=== PATIENT | female | born 1930 | race Caucasian/White ===

== ENCOUNTER 2016-03-13 08:20 | Inpatient (IN) | payer MEDICARE, OTHER, MEDICAID ==
[2016-03-13] VITALS (16 sets, daily range): BP systolic 133–234; BP diastolic 53–129; PULSE 66–117; RESP 9–20; O2SAT 100
[~2016-03-13 08:20] MED LIST: ACET325T51 PO; ACET325T51 PR; ASCO-294 PO; CLON0.1T PO; DILT120C83 PO; FERR-83 PO; FLUO60TA PO; INSLIS SUBQ; INSU100C11 SUBQ; INSU100V7 SUBQ; IPRA3AMP IH; LEVA1.253 IH; LEVO75TA4 PO; LISI-610 PO; MORP20SY PO; MULT1CAP33 PO; NITR0.4T SL; ONDA4TAB6 PO; POLY17PO6 PO; PRE10 PO; TRAM50TA2 PO
[2016-03-13 08:28] LABS: BASOPHILS % (AUTO) 0.4 % (0-3); EOSINOPHILS % (AUTO) 0.7 % (0-5); MONOCYTES % (AUTO) 8.3 % (4-12); Mean Corpuscular Hemoglobin 32.2 pg (27.0-35.0); Mean Corpuscular Volume 95.9 fL (81-100); NEUTROPHILS % (AUTO) 76.6 % (40-74); Platelet Count 224 bil/L (150-400)
--- NOTE | 2016-03-13 08:37 | DRSVH ---
PROCEDURE: CT BRAIN (TPA) ([id number]) INDICATIONS: Stroke TECHNIQUE: Noncontrast 4.5 mm thick angled axial sections acquired from the foramen magnum to the vertex, with c oronal reformats. COMPARISON: [facility], CT, BRAIN W/O CONTRAST, 06/12/2013, 14:41. FINDINGS: Image quality: Excellent. CSF spaces: Basal cisterns are patent. No extra-axial fluid collections. The ventricles are symmet noreen in size and shape. Brain: No intracranial bleeds or masses. There is a new chronic versus subacute infarct within the left inferior cerebellum measuring 30 mm. There is cerebral volume loss for age, with resultant ventr icular and sulcal prominence. There are periventricular and deep white matter chronic small vessel i schemic changes. There is intracranial internal carotid artery atherosclerosis. Skull and face: Calvarium and visualized facial bones appear intact, without suspicious lesions. Sinuses: Visualized sinuses and mastoids are clear. IMPRESSION: 1. No acute intracranial abnormality. 2. Volume loss and small vessel skin disease. 3. 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 4. Findings relayed to Dr. Farrell via [facility] staff [facility], on 03.13.16 at 0834 hours. This study fulfills neurological imaging criteria for inclusion or exclusion of acute stroke therapie s based on available published neurological guidelines. Dictated by: Juan Metcalf M.D. on 03/13/2016 at 8:35 Approved by: Juan Metcalf M.D. on 03/13/2016 at 8:35
--- NOTE | 2016-03-13 08:46 | ED.REPORT ---
HPI-Stroke / CVA Mar 13, 2016 ED Provider: Jesus Alberto Farrell MD Patient is an 85 year old female with a history of atrial fibrillation who presents to the ED via EMS from [facility] s/p a decreased LOC. Her last known normal was at 0730. Patient is non-verbal and unresponsive upon arrival. Her POLST indicated she was DNAR but when her power of energy attorney was contacted, she requested to revoke her DNAR status. She is NOT anticoagulated. Power of energy attorney: Callie Lugo Nursing Notes Stated Complaint: DECREASE LOC Nursing Notes Reviewed: Yes ([employer], [employer] not reconciled) Allergies: Coded Allergies: lovastatin (Verified Allergy, Unknown, 12/28/14) Penicillins (Verified Adverse Reaction, Mild, swelling at injection site, 12/28/14) 06/30/14 GIVEN ROCEPHIN FINE Scheduled Ascorbate Calcium (Vitamin C) 500 Mg Tablet 500 MG PO DAILY (Reported) Clonidine (Clonidine) 0.1 Mg Tablet 0.1 MG PO BID Diltiazem ER (Cardizem CD) 120 Mg Cap.er.24h 360 MG PO DAILY Ferrous Sulfate (Ferrous Sulfate) 325 Mg Tablet 325 MG PO DAILY (Reported) Fluoxetine (Fluoxetine) 60 Mg Tablet 60 MG PO DAILY (Reported) Insulin Glargine (Lantus U100 Insulin Vial) 100 Unit/Ml Vial 7 UNIT SUBQ MORNING (Reported) Insulin Human Lispro (HumaLOG U100 Insulin Vial) 100 Unit/Ml Unit 0-10 UNIT SUBQ TIDAC Check blood sugars before meals and at bedtime. Use correction factor only before meals. Blood Sugar Lispro Correction: <151, 0 units; 151-175, 1 unit; 176-200, 2 units; 201-225, 3 units; 226-250, 4 units; 251-275, 5 units; 276-300 , 6 units; 301-325, 7 units; 326-350, 8 units; 351-375, 9 units; 376-400, 10 units; >400, 12 units. Insulin Lispro (HumaLOG U100 Insulin Cartridge Refill) 100 Unit/1 Ml Cartridge 3 UNIT SUBQ MORNING (Reported) Blood Sugar Lispro Correction <151 0 units 151-175 1 unit 176-200 2 units 201-225 3 units 226-250 4 units 251-275 5 units 276-300 6 units 301-325 7 units 326-350 8 units 351-375 9 units 376-400 10 units >400 12 units Check blood sugars before meals and at bedtime. Use correction factor only before meals. Ipratropium/Albuterol Sulfate (Iprat-Albut 0.5-3(2.5) mg/3 mL Inhalant Soln) 3 Ml Ampul.neb 3 ML IH BID (Reported) Levothyroxine (Levothyroxine) 75 Mcg Tablet 75 MCG PO DAILY (Reported) Lisinopril (Zestril) 10 Mg Tablet 20 MG PO BID Multivitamin (Multivitamins) 1 Each Capsule 1 EACH PO DAILY (Reported) Polyethylene Glycol 3350 (Miralax) 17 Gm Powd.pack 17 GM PO DAILY Prednisone (PredniSONE) 10 Mg Tablet 10 MG PO DAILY (Reported) Scheduled PRN Acetaminophen (Acetaminophen) 325 Mg Tablet 650 MG PO Q4H PRN PRN FEVER/PAIN ( Reported) Acetaminophen (Acetaminophen) 325 Mg Tablet 650 MG MS Q4H PRN PRN FEVER/PAIN ( Reported) Levalbuterol HCl (Xopenex) 1.25 Mg/3 Ml Vial.neb 1.25 MG IH QIDRT PRN PRN For Shortness of Breath Morphine Sulfate (Morphine Sulfate) 20 Mg/1 Ml Syringe 2 MG PO PRN air hunger ( Reported) Nitroglycerin SL (Nitrostat) 0.4 Mg Tab.subl 0.4 MG SL Q5MIN PRN PRN For Chest Pain (Reported) Ondansetron (Zofran) 4 Mg Tablet 4 MG PO Q4H PRN PRN For Nausea Tramadol (Tramadol) 50 Mg Tablet 50 MG PO TID PRN PRN For Pain (Reported) General Time Seen by Provider: 08:23 [facility]red From: jail Chief Complaint Mental status change Right-sided Hx Obtained From: Other family..., EMS Arrived By: Ambulance Time last known well 0730 on 03/13/16 Sudden in Onset?: Yes Progression Since Onset: Constant Past Medical History Past Medical History Notes: DNAR status revoked by POA. Patient is FULL CODE Past Medical History Dementia Chronic obstructive pulmonary disease. Paroxysmal atrial fibrillation. Hypertension. Hyperlipidemia. Hypothyroidism. Diabetes mellitus type 2. History of ulcerative colitis. Coronary artery disease, status post LAD stent. Gout. Spinal stenosis and multilevel lumbar spine degenerative changes. Osteoporosis. Osteoarthritis of left knee, requiring injections. non-anticoagulated NSTEMI Reports: Depression Past Surgical History Appendectomy. Partial colon resection. Cholecystectomy. Left carotid endarterectomy. Smoking History Former Smoker Social History FULL CODE FULL TREATMENT Alcohol Use: Denies alcohol use Drug Use: Denies drug use Other Social History: Good social support, , Lives in intermediate Ambulatory Status Independent Review of Systems Unable to Obtain ROS Patient condition Physical Exam Initial Vital Signs Vital Signs (First) Date Time Temp Pulse Resp B/P Pulse Ox O2 Delivery O2 Flow Rate FiO2 03/13/16 08:41 36.9 117 9 169/53 100 Non-Rebreather see flow Initial VS: Reviewed Abdomen / GI: Soft Skin: Warm, Dry Alertness: Positive: Unresponsive No visible sign of trauma. Head / Eyes: Normocephalic, PERRL Neck: Atraumatic Respiratory / Chest: Breath sounds = bilat Lungs clear but decresed respiration and required intubation. Heart Sounds / Murmur: Positive: Murmur present... Rate controlled afib Mental Status: Positive: Unresponsive See Stroke scale in [facility] Trouble managing secretions Interpretation & Diagnostics Lab Results Interpretation Result Diagram: 03/13/16 1300 03/13/16 0824 Test 03/13/16 08:24 03/13/16 09:04 White Blood Count 13.6th/mm3 (3.8-10.1) Red Blood Count 4.88mil/mm3 (3.90-5.20) Hemoglobin 15.7g/dL (12.0-15.6) Hematocrit 46.8% (35.0-46.0) Mean Corpuscular Volume 95.9fL (81-100) Mean Corpuscular Hemoglobin 32.2pg (27.0-35.0) Mean Corpuscular Hemoglobin Concent 33.5% (32.0-37.0) Red Cell Distribution Width 15.5% (12.3-15.4) Neutrophils (%) (Auto) 76.6% (40-74) Lymphocytes (%) (Auto) 10.8% (14-46) Monocytes (%) (Auto) 8.3% (4-12) Eosinophils (%) (Auto) 0.7% (0-5) Basophils (%) (Auto) 0.4% (0-3) Sodium Level 135mEq/L (134-144) Potassium Level 4.8mEq/L (3.5-5.2) Chloride Level 92mEq/L (97-108) Carbon Dioxide Level 29mmol/L (18-29) Blood Urea Nitrogen 21mg/dL (8-27) Creatinine 0.44mg/dL (0.57-1.00) Estimat Glomerular Filtration Rate 194mL/min (>59) Glucose Level 133mg/dL (60-99) Calcium Level 9.4mg/dL (8.5-10.1) Magnesium Level 1.9mg/dL (1.6-2.6) Total Bilirubin 0.6mg/dL (0.0-1.2) Aspartate Amino Transf (AST/SGOT) 32U/L (0-50) Alanine Aminotransferase (ALT/SGPT) 32U/L (0-32) Alkaline Phosphatase 97U/L (25-165) Troponin T 0.019ug/L (0.0-0.011) Total Protein 6.7g/dL (6.4-8.4) Albumin 3.5g/dL (3.4-5.0) Prealbumin 27mg/dL (20-40) Urine Color Yellow (YELLOW) Urine Appearance Hazy (CLEAR,HAZY) Urine pH 8.0 (5.0-8.0) Urine Specific [place] 1.020 (1.003-1.035) Urine Protein 30mg/dL (NEG,TRACE) Urine Glucose (UA) Negativemg/dL (NEGATIVE) Urine Ketones Negativemg/dL (NEGATIVE) Urine Occult Blood Trace (NEGATIVE) Urine Nitrite Negative (NEGATIVE) Urine Bilirubin Negative (NEGATIVE) Urine Urobilinogen Normalmg/dL (NORMAL) Urine Leukocyte Esterase Small (NEGATIVE) Urine RBC 11-50/hpf (0-2) Urine WBC 11-50/hpf (0-5) Urine Epithelial Cells Occasional/hpf (NONE-MOD) Urine Crystals None seen (NONE SEEN) Urine Bacteria Few/hpf (NONE-FEW) Urine Hyaline Casts None/lpf (NONE) Urine Granular Casts None seen (NONE SEEN) Urine Waxy Casts None seen (NONE SEEN) Urine Red Blood Cell Casts None seen (NONE SEEN) Urine White Blood Cell Casts None seen (NONE SEEN) Urine Mucus None seen (None Seen) Urine Trichomonas None seen (NONE SEEN) Urine Yeast Moderate (NONE SEEN) Urinalysis Comment None Urine Culture Reflexed Indicated Lab Results Interpretation: CBC positive leukocytosis, platelet count normal CMP normal, glucose normal UA with markers of infection, uncertain relevance Coags negative ECG Interpretation ECG Interpretation: rate [address] depression laterally t wave inversion AVL similar to prior Time: 08:32 Interpreted by: ED physician X-Ray Chest Interpretation Chest Xray Interpretation: IMPRESSION: 1. Low ETT. 2. Bibasilar pneumonia with small parapneumonic effusions. 3. Findings discussed with Dr. Farrell on 03.13.16 at 0915 hrs. Dictated by: Juan Metcalf M.D. on 03/13/2016 at 9:16 Approved by: Juan Metcalf M.D. on 03/13/2016 at 9:16 View: Portable, 1 view Interpretation / Wet Read by: Interpret - Radiologist Chest Xray Interpretation: IMPRESSION: 1. ETT is in expected position. 2. No change in bibasilar pneumonia with small effusions. Continued plain film surveillance is recommended to ensure resolution, and to exclude underlying or central malignancy. Dictated by: Juan Metcalf M.D. on 03/13/2016 at 9:43 Approved by: Juan Metcalf M.D. on 03/13/2016 at 9:43 View: Portable, 1 view Interpretation / Wet Read by: Interpret - Radiologist CT Head Interpretation BRAIN CT: IMPRESSION: 1. No acute intracranial abnormality. 2. Volume loss and small vessel skin disease. 3. 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 4. [facility] on 03.13.16 at 0834 hours. This study fulfills neurological imaging criteria for inclusion or exclusion of acute stroke therapies based on available published neurological guidelines. Dictated by: Juan Metcalf M.D. on 03/13/2016 at 8:35 Approved by: Juan Metcalf M.D. on 03/13/2016 at 8:35 Study: Head CT no contrast Interpretation / Wet Read by: Interpret - Radiologist, Discussed w radiologist Procedures Intubation Time: 08:43 Procedure Performed by: Allied health pract Consent / Setup / Site Prep: Consent from guardian (intubation requested and consent obtained by power of energy attorney), No consent - emergent, Time-out performed, Oxygen administered, Pulse oximeter applied, device sales consultant applied , Hand hygiene observed Patient Position: Sniff position Blade / ET Tube / Route: Mac, ET tube cuffed, Route: oral Premedicated: Atropine ___ mg Procedural Sedation/Analgesia: Sedation: Etomidate Neuromuscular Agent: Succinylcholine ET Confirmation: Direct visualization, BS equal, End tidal CO2 device, CXR, Rising O2 sat (no change in O2 sat, no hypoxia) Secured / Marked: ET tube device, Tube marked at ___ cm (23) Complications: None Post-Procedure: Condition improved, Patient stable Re-Eval/Medical Decision Med Decision/Clinical Course This is an 85-year-old demented female presents in a intermediate for concern for a stroke. The patient's last known normal was 7:30 this a.m., she has a history of chronic atrial fibrillation and there was initial report of the patient was anticoagulated-however after careful review of the medical history and the medications and turns out the patient is not currently on any anticoagulation although the reasons for the absence of anticoagulation are unclear. The patient is a diabetic and glucose was normal. Patient was found unresponsive with forced left gaze preference, flaccid paralysis of the right arm, severe weakness of the right leg/possible paralysis and seemed to be having some difficulty managing secretions. The medics arrived the patient's intermediate notes indicate the patient's DO NOT RESUSCITATE, and she has a POLST form dated January 2016 only a month ago that radiates DO NOT RESUSCITATE in the setting of a restless and limited interventions in the setting of a presence of a pulse/breathing. Liver as a patient being transferred to notify that the POA is a family member, who explicitly revoked the pulse and indicated that she wants things done. The medics were uncomfortable in this setting and appropriate so intubating the patient given the complicating CODE STATUS and brought her to the ED with basic life support management of the airway which is reasonable. Arrival she was brought into room 4, where this information about her CODE STATUS and resuscitation was presented. I agree with her hesitance in this setting in a rapidly progressing to intubation, the patient underwent CT, while I contacted the POA discussed the situation. The POA is insistent that the patient should be intubated and received full resuscitative measures-and claims that the patient absolutely did not understand any of the repercussions of the POLST form she signed a month ago. Emergency situation, and the directors of the PA ultimately we went ahead and performed an intubation for airway protection. Patient was intubated without difficulty with a 7 1/2 ET tube following etomidate and succinylcholine. A postprocedure chest x-ray demonstrated to be too far, and the tube was pulled back and a follow-up chest x-ray demonstrated the tube in good position at 23 cm. EKG confirms rate controlled atrial fibrillation, and put the patient at high risk for stroke. Noncontrast head CT via protocol was read as negative for acute pathology, and when I reviewed it with the [facility] neurology consultation , they are concerned that it is suggestive of a left MCA sign. Does have findings suggestive of a dense left MCA stroke. Her prognosis is poor. I had an extensive discussion with the neurologist at [facility], and subsequent to POA as given the prognosis is grim either way, that it was not unreasonable to offer TPA as an option, with the understanding that there is a significant risk of intracranial hemorrhage and subsequent . However it is also understood absent TPA, there is significant risk of progression as well. POA was possibly took time, called several other family members, and call back after our discussion and requested TPA administration. Patient has no absolute contraindications, and the relative risk including the admit for NM in the past 3 months were reviewed with neurology and the family. Neurologist agrees with offering tPA given status. She did develop mild hypertension following the intubation, and I suspected this was potentially sedation related, as a resolved rapidly with propofol. And she met criteria. So under direction of pharmacy, she received TPA. [facility] neurology indicated that the patient is absolutely not a candidate for mechanical retraction, so the standard process of a post TPA IV contrast enhanced CT angiogram was canceled given it is obtained for the purposes of determining candidacy. Reason is being admitted for continued supportive care. The power of energy attorney is coming up from [facility] and loss of R he arrived. The grim prognosis was explained. The patient does have a possible UTI, commitment, and received a dose of ceftriaxone. Case has been discussed with the hospitalist. Source of Hx: Old records, EMS NIH Stroke Scale : Level of Consciousness: Movements to pain (2) Ask Month & Age: Aphasic (2) Open/Close Eyes/Hand Gas Systems Worker: Performs 0 tasks (2) Horizontal EO Movements: Tot/forced gaze pares (2) Visual Johnson: No visual loss (0) (Unable to assess, ) Facial Palsy: Unil complete, up&low (3) Right Arm Motor Drift (10s): No effort, limb fails (3) Left Arm Motor Drift (10s): Some effort v gravity (2) (Does not follow commands, uses spontaneously ) Right Leg Motor Drift (5s): No effort, limb fails (3) (to painful stimuli, plantar flexes and dorsiflexes toes ) Left Leg Motor Drift (5s): Some effort v gravity (2) (Does not follow commands, moves spontaneously) Limb Ataxia FNF/Heel-Mccurdy: Untestable (0) Sensation (Arms/Legs/Face): Coma / unresponsive (2) Language Aphasia: Coma / unresponsive (3) Dysarthria: Mute, anarthric (2) Extinction/Inattention: No exctinct/inattent (0) NIHSS Score: 29 Time NIHSS Performed: 08:30 Date NIHSS Performed: Mar 13, 2016 Consultation #1: Consulted With: Neurology Call Returned at: 08:54 Pst Specialist: Agrees with plan Note: Discussed patient's case with Dr. Soto at [facility]. Agrees that patient's POA can be offered TPA. Consultation #2: Referral / Consult Name: Misha Acosta MD Consulted With: Hospitalist Call Returned at: 10:31 Pst Specialist: Will see patient, Agrees with eval, Agrees with plan, Accepts admit Note: Discussed patient's case. Accepts patient. Consultation #3: Consulted With: Neurology Pst Specialist: Will see patient Note: Patient's being admitted to [facility]. Dr. Marquez on for neurology notified of this patientwho received TPA. Differential Diagnosis: Positive: Atrial fibrillation, Cerebrovascular accident , Negative: Hyperglycemia, Hypoglycemia, Intoxication, alcohol, Intoxication, other drug, Intraparench hemorrhage, Malignancy, Subarachnoid hemorrhage, Subdural hemorrhage, Systemic infection, Nabil's paralysis, Vertebrobasilar dissectio, Vertebrobasilar thrombus Counseled Regarding: Diagnosis, Lab results, Need for admission Patient Discharge & Departure Impression: Primary Impression: CVA (cerebral vascular accident) CVA mechanism: unspecified Qualified Code: I63.9 - Cerebral infarction, unspecified Additional Impressions: Atrial fibrillation Atrial fibrillation type: chronic Qualified Code: I48.2 - Chronic atrial fibrillation UTI (urinary tract infection) Urinary tract infection type: acute cystitis Hematuria presence: without hematuria Qualified Code: N30.00 - Acute cystitis without hematuria Disposition: ADMITTED TO HOSPITAL Referrals: Chantal Terrazas MD (PCP) Crit Care Except Billable Proc Time Spent: 75-104 minutes Services Performed: Patient management by me, Time spent at bedside, Reviewing test results, Reviewing imaging, Discussing patient care, Documentation in record, Time with fam/surrogate Scribe Attestation Portions of this note were transcribed by Burt Victor. I, Dr. Farrell personally performed the history, physical exam and medical decision-making; I reviewed and confirmed the accuracy of the information in the transcribed note. Signed by: Burt Victor 03/13/16, 4838 copies to: Chantal Terrazas MD, Matthew F MD Mar 13, 2016 08:46 BURT VICTOR Mar 13, 2016 08:57
[2016-03-13 08:51] LABS: TROPONIN T 0.019 ug/L (0.0-0.011)
[2016-03-13] MEDS ORDERED: Propofol 10,000 mCg/mL 100 mL Inj ONE (09:03)
[2016-03-13 09:04] LABS: INR 0.87 ratio
--- NOTE | 2016-03-13 09:18 | DRSVH ---
PROCEDURE: X-RAY CHEST ONE VIEW, PORTABLE ([id number]) INDICATIONS: intubated TECHNIQUE: One view of the chest was acquired. COMPARISON: [facility], CR, XR CHEST 1VW (PORTABLE), 01/29/2016, 12:47. [facility], CR, XR CHEST 1VW (PORTABLE), 12/06/2015, 20:15. [facility], CR, XR CHEST 1VW (P ORTABLE), 03/29/2015, 15:33. FINDINGS: Surgical changes and devices: ETT is present, tip of which is at the temi. NGT extends below the le jam of the film. Lungs and pleura: No pneumothorax. Moderate left and mild right basilar airspace opacity. Small bila teral pleural effusions. Mediastinum: Mediastinal contours appear normal. Heart size is normal. Bones and chest wall: No suspicious bony lesions. Overlying soft tissues appear unremarkable. IMPRESSION: 1. Low ETT. 2. Bibasilar pneumonia with small parapneumonic effusions. 3. Findings discussed with Dr. Farrell on 03.13.16 at 0915 hrs. Dictated by: uJan Metcalf M.D. on 03/13/2016 at 9:16 Approved by: Juan Metcalf M.D. on 03/13/2016 at 9:16
[2016-03-13] MEDS ORDERED: Alteplase Dose Per Pharmacist XX ONE (09:35)
--- NOTE | 2016-03-13 09:40 | NUR ---
Orders received. CUBING MACHINE TENDER evaluation d/c secondary to patient intubation. Reconsult when appropriate for po intake.
--- NOTE | 2016-03-13 09:45 | DRSVH ---
PROCEDURE: X-RAY CHEST ONE VIEW, PORTABLE ([id number]) INDICATIONS: check tube (reposition) TECHNIQUE: One view of the chest was acquired. COMPARISON: [facility], CR, XR CHEST 1VW (PORTABLE), 03/13/2016, 9:02. [facility], CR, XR CHEST 1VW (PORTABLE), 01/29/2016, 12:47. [facility], CR, XR CHEST 1VW (POR TABLE), 12/06/2015, 20:15. FINDINGS: Surgical changes and devices: ETT tip is now in expected location. NGT extends below the level of the film. Lungs and pleura: No pneumothorax. No change in left greater than right bibasilar airspace opacities and small bilateral pleural effusions. Mediastinum: Mediastinal contours appear normal. Heart size is normal. Bones and chest wall: No suspicious bony lesions. Overlying soft tissues appear unremarkable. IMPRESSION: 1. ETT is in expected position. 2. No change in bibasilar pneumonia with small effusions. Continued plain film surveillance is recomm ended to ensure resolution, and to exclude underlying or central malignancy. Dictated by: Juan Metcalf M.D. on 03/13/2016 at 9:43 Approved by: Juan Metcalf M.D. on 03/13/2016 at 9:43
[2016-03-13 10:03] LABS: APPEARANCE,URINE HAZY (CLEAR,HAZY); COLOR,URINE YELLOW (YELLOW); OCCULT BLOOD,URINE TRACE (NEGATIVE); UROBILINOGEN,URINE NORMAL (NORMAL); YEAST,URINE MODERATE (NONE SEEN)
[2016-03-13] MEDS ORDERED: cefTRIAXone Inj 2,000 MG in IV Premix 1 EACH IV ONE (10:25)
[2016-03-13] MEDS ORDERED: Alteplase (No Charge) 1 mg/mL Syringe IV ONE (10:25)
[2016-03-13] MEDS ORDERED: ALTEPLASE IV ONE (10:25)
[2016-03-13] MEDS ORDERED: Propofol Inj 1,000,000 MCG in IV Premix 1 EACH IV SCH (10:33)
[2016-03-13] MEDS ORDERED: Ondansetron 2 mg/mL 2 mL Inj IVPUSH PRN (10:35)
[2016-03-13] MEDS ORDERED: Alum-Mag Hydrox-Simeth 30 mL Suspension PO PRN (10:35)
[2016-03-13] MEDS ORDERED: Senna-Docusate 8.6-50 mg Tablet PO PRN (10:35)
[2016-03-13] MEDS ORDERED: Polyethylene Glycol (PEG) 17 Gm Powder PO PRN (10:35)
[2016-03-13] MEDS ORDERED: Labetalol 5 mg/mL 4 mL Inj IVPUSH ONE (11:10)
[2016-03-13 11:40] LABS: Magnesium 1.9 mg/dL (1.6-2.6)
[2016-03-13 13:28] LABS: INR 0.91 ratio
--- NOTE | 2016-03-13 14:40 | DRSVH ---
PROCEDURE: CT BRAIN WITHOUT CONTRAST ([id number]) INDICATIONS: To re-evalaute progression of stroke TECHNIQUE: Noncontrast 4.5 mm thick angled axial sections acquired from the foramen magnum to the vertex, with c oronal reformats. COMPARISON: [facility], CT, BRAIN (TPA), 03/13/2016, 8:28. [facility], CT, B RAIN W/O CONTRAST, 06/12/2013, 14:41. [facility], CT, BRAIN W/O CONTRAST, 04/28/2012, 14:0 3. [facility], CT, BRAIN W/O CONTRAST, 03/11/2012, 7:19. FINDINGS: Image quality: Excellent. CSF spaces: Basal cisterns are patent. No extra-axial fluid collections. The ventricles are symmet noreen in size and shape. Brain: No intracranial bleeds or masses. There is new low density and loss of duarte-white differentia tion within the left middle cerebral artery distribution, involving the left anterolateral frontal lo be, the left anterior parietal lobe, as well as the left superior temporal lobe, measuring roughly 9 cm anteroposterior. No change in chronic versus subacute appearing left inferior cerebellar infarct. There is cerebral volume loss for age, with resultant ventricular and sulcal prominence. There are p eriventricular and deep white matter chronic small vessel ischemic changes. There is intracranial in ternal carotid artery atherosclerosis. Skull and face: Calvarium and visualized facial bones appear intact, without suspicious lesions. Sinuses: Visualized sinuses and mastoids are clear. IMPRESSION: 1. Early subacute left MCA distribution infarct. 2. No change in chronic left inferior cerebellar infarct. Dictated by: Juan Metcalf M.D. on 03/13/2016 at 14:38 Approved by: Juan Metcalf M.D. on 03/13/2016 at 14:38
[2016-03-13] MEDS ORDERED: Labetalol 5 mg/mL 4 mL Inj IVPUSH PRN (14:50)
--- NOTE | 2016-03-13 15:57 | PCM.HPMED ---
Subjective Date of Service Mar 13, 2016 Primary Provider: Admitting Physician: Misha Acosta MD Primary Care Physician: Chantal Terrazas MD Attending Physician: Misha Acosta MD Admit Status: From the Emergency Department, Full Admit, Critical Care Chief Complaint: Stroke with nonverbal status and acute right hemiparesis. History of Present Illness: Patient brought from [facility] for decreased mental status and non verbal status. 911 called. POLST stated DNR. DPOH called and stated to intubate. Brought to ED, with an apparent acute right hemiparesis. Given thrombolytics after tele stroke consult with [place]. Last well 07:30 AM. Usually verbal. Chronically can not walk. Nonverbal in ED, no history available. Initial head CT normal. Chronic AF, not on anticoagulation. Review of Systems: Intubated. Not obtainable. Allergies Coded Allergies: lovastatin (Verified Allergy, Unknown, 12/28/14) Penicillins (Verified Adverse Reaction, Mild, swelling at injection site, 12/28/14) 06/30/14 GIVEN ROCEPHIN FINE Home Medications Ascorbate Calcium (Vitamin C) 500 Mg Tablet 500 MG PO DAILY (Reported) Clonidine (Clonidine) 0.1 Mg Tablet 0.1 MG PO BID Diltiazem ER (Cardizem CD) 120 Mg Cap.er.24h 360 MG PO DAILY Ferrous Sulfate (Ferrous Sulfate) 325 Mg Tablet 325 MG PO DAILY (Reported) Fluoxetine (Fluoxetine) 60 Mg Tablet 60 MG PO DAILY (Reported) Insulin Glargine (Lantus U100 Insulin Vial) 100 Unit/Ml Vial 7 UNIT SUBQ MORNING (Reported) Insulin Human Lispro (HumaLOG U100 Insulin Vial) 100 Unit/Ml Unit 0-10 UNIT SUBQ TIDAC Check blood sugars before meals and at bedtime. Use correction factor only before meals. Blood Sugar Lispro Correction: <151, 0 units; 151-175, 1 unit; 176-200, 2 units; 201-225, 3 units; 226-250, 4 units; 251-275, 5 units; 276-300 , 6 units; 301-325, 7 units; 326-350, 8 units; 351-375, 9 units; 376-400, 10 units; >400, 12 units. Insulin Lispro (HumaLOG U100 Insulin Cartridge Refill) 100 Unit/1 Ml Cartridge 3 UNIT SUBQ MORNING (Reported) Blood Sugar Lispro Correction <151 0 units 151-175 1 unit 176-200 2 units 201-225 3 units 226-250 4 units 251-275 5 units 276-300 6 units 301-325 7 units 326-350 8 units 351-375 9 units 376-400 10 units >400 12 units Check blood sugars before meals and at bedtime. Use correction factor only before meals. Ipratropium/Albuterol Sulfate (Iprat-Albut 0.5-3(2.5) mg/3 mL Inhalant Soln) 3 Ml Ampul.neb 3 ML IH BID (Reported) Levothyroxine (Levothyroxine) 75 Mcg Tablet 75 MCG PO DAILY (Reported) Lisinopril (Zestril) 10 Mg Tablet 20 MG PO BID Multivitamin (Multivitamins) 1 Each Capsule 1 EACH PO DAILY (Reported) Polyethylene Glycol 3350 (Miralax) 17 Gm Powd.pack 17 GM PO DAILY Prednisone (PredniSONE) 10 Mg Tablet 10 MG PO DAILY (Reported) Scheduled PRN Acetaminophen (Acetaminophen) 325 Mg Tablet 650 MG PO Q4H PRN PRN FEVER/PAIN ( Reported) Acetaminophen (Acetaminophen) 325 Mg Tablet 650 MG KY Q4H PRN PRN FEVER/PAIN ( Reported) Levalbuterol HCl (Xopenex) 1.25 Mg/3 Ml Vial.neb 1.25 MG IH QIDRT PRN PRN For Shortness of Breath Morphine Sulfate (Morphine Sulfate) 20 Mg/1 Ml Syringe 2 MG PO PRN air hunger ( Reported) Nitroglycerin SL (Nitrostat) 0.4 Mg Tab.subl 0.4 MG SL Q5MIN PRN PRN For Chest Pain (Reported) Ondansetron (Zofran) 4 Mg Tablet 4 MG PO Q4H PRN PRN For Nausea Tramadol (Tramadol) 50 Mg Tablet 50 MG PO TID PRN PRN For Pain (Reported) PMH 1. Dementia 2. Chronic obstructive pulmonary disease. 3. Paroxysmal atrial fibrillation. 4. Hypertension. 5. Hyperlipidemia. 6. Hypothyroidism. 7. Diabetes mellitus type 2. 8. History of ulcerative colitis. 9. Coronary artery disease, status post LAD stent. 10. Gout. 11. Spinal stenosis and multilevel lumbar spine degenerative changes. 12. Depression Surgical History Appendectomy. Partial colon resection. Cholecystectomy. Left carotid endarterectomy. Family History Not obtainable Social History Occupation: retired Hx Alcohol Use: No Hx Substance Use: No Hx Tobacco Use: Yes (quit 32 years ago) Smoking Status: Former Smoker Exam Vital Signs Vital Sign - Last Date Time Temp Pulse Resp B/P Pulse Ox O2 Delivery O2 Flow Rate FiO2 03/13/16 15:27 78 204/122 100 40 03/13/16 12:30 36.1 16 Mechanical Ventilator Exam Intubated and sedated. Normal skull Conjugate pupils. Anicteric sclera. Normal nose and ears. No facial droop ET tube in place Neck with normal thyroid, no adenopathy. Lungs: clear, no wheezing. CV irregular, no murmur. abdomen Soft, ND No leg edema No joint swelling No skin kanchan, ecchymosis Right arm and leg paralyzed. Moves left arm to painful stimuli. Lab and Diagnostics Result Diagram: 03/13/16 1300 03/13/16 0824 X-Rays, CTs and MRIs Head CT normal CXR: possible bibasilar infiltrates. 12-lead ECG Atrial fibrillation Assessment & Plan 1. Acute CVA with right hemiparesis, POA. S/P thrombolysis and intubation. Continue post lysis protocol with serial neuro checks and serial CT head. 2. PAF, POA. Rate control as needed. 3. Acute hypoxic respiratory failure. POA. The patient was also intubated for airway protection. We will discuss the duration of intubation and purpose with family once we see the serial CT scan. 4. A history of DNR/DNI and a previous pulse which was overturned by telephone to the [facility]PTX today. We will further discuss this level of care is again more information. 5. Hypertension, chronic. POA. We will allow permissive hypertension to exist in the next 24-48 hours[address] scan of 1400 indicates an evolving large left MCA infarct. On decision makers were assembled in the room. Inform them that the TPA appeared not to improve the situation and her prognosis was relatively poor as this is a large left hemispheric stroke. Also review level of care issues with them. Ultimately after our discussion they are okay with extubation with BiPAP support if needed. She will be DO NOT RESUSCITATE and DO NOT INTUBATE. I expect if she gets extubated she likely will need BiPAP support tonight. I also expect the family will signal last they want to comfort care if any other deterioration occurs. Pain Evaluation: Adequate Pain Control Resuscitation Status: CPR: Attempt Resuscitation Time spent 40 minutes Misha Acosta MD Mar 13, 2016 15:57
--- NOTE | 2016-03-13 16:28 | NUR ---
IV attempts, This RN attempted two IV's. Both IV were placed into the vein but when flushed the vessel "blew" and became swollen. On both attempts the catheter was removed. The patient RN was informed of this. She states she will contact Dr. Acosta. A short time later, the RN returns and informs me and the family that Dr. Acosta states to stop attempts and he will be in later to talk to the family.
[2016-03-13] MEDS: Propofol Inj 1,000,000 MCG in IV Premix 1 EACH IV SCH (17:46)
--- NOTE | 2016-03-13 17:57 | NUR ---
Neuro/Respiratory Pt arrived s/p tPA admin in ED. Pt spontaneously moves LUE and L foot, has reflex to R foot. No movement to RUE/RLE. Gaze is fixed, pupils equal and reactive to light, sluggish; does not open eyes to command or noxious stimuli. Occasional cough. Propofol at 20mcg/kg/min. Hypertensive 190s to 220s. Labetalol prn. Vent settings upon arrival were, FiO2 100%, PEEP 5, Vt 360, 16. FiO2 weaned to 30% by RT, SpO2 maintains 100%. CT done at 1400, revealed MCA stroke. Dr. Acosta in to give update to family. DPOA at bedside, she and rest of family agreed to make pt DNR. Family elected to extubate to BiPAP, if needed, this evening. Attempted a pressure support trial, pt did not initiate a breath. Dr. Acosta notified, this RN and Shadi Bell, RT updated the family regarding apnea without ventilator. Family to discuss extubation timeframe. At this time Propofol is off, pt has no increase in cognitive function.
[2016-03-13] MEDS: 0.9% Sodium Chloride 1,000 ML IV SCH ×3 (20:33→23:03)
[2016-03-14] MEDS: Propofol Inj 1,000,000 MCG in IV Premix 1 EACH IV SCH (01:04)
[2016-03-14 01:56] VITALS: BP 193/105; O2SAT 100
[2016-03-14 04:09] VITALS: BP 151/109; PULSE 93; RESP 16; O2SAT 100
--- NOTE | 2016-03-14 04:12 | NUR ---
Neuro/Cardiac/Resp Patient remains on vent, no changes with neuro response, patient continues to have upward left gaze, no purposeful movements, HR 80-90's SA with PAC's, vent settings unchanged, kept comfortable and repositioned Q2H, bath done and linens changed, Propofol at 25mcg/kg/min for sedation, will continue to monitor, no distress noted.
[2016-03-14 05:44] VITALS: BP 163/95; O2SAT 100
[2016-03-14 08:00] VITALS: BP 186/115; O2SAT 100
[2016-03-14] MEDS ORDERED: Morphine 100 mg/100 mL NS 100 MG in IV Premix 1 EACH IV PRN (09:05)
[2016-03-14] MEDS: 0.9% Sodium Chloride 1,000 ML IV SCH (11:33)
--- NOTE | 2016-03-14 14:18 | PCM.PNMED ---
Subjective Date of Service Mar 14, 2016 Subjective The patient has remained sedated overnight. A long family conference is held with the patient's family last night. They are given the poor prognosis of a large left MCA infarct. Also the fact that she been intubated in spite of a POLST that revealed DO NOT RESUSCITATE or intubate was discussed. Ultimately for comfort he was decided to leave her intubated overnight and pursue sedation this morning. Exam Vital Signs Vital Sign - Last Date Time Temp Pulse Resp B/P Pulse Ox O2 Delivery O2 Flow Rate FiO2 03/14/16 08:00 91 186/115 100 30 03/14/16 04:09 37.5 16 Mechanical Ventilator Intake and Output 03/13/16 03/13/16 03/14/16 Cumulative From/Thru 15:00 23:00 07:00 03/13/16 08:27 - 03/14/16 04:16 Intake Total 31 ml 681 ml 712 ml Output Total 450 ml 180 ml 630 ml Balance -419 ml 501 ml 82 ml Intake Oral 0 ml 0 ml IV Total 31 ml 681 ml 712 ml Output Urine Total 450 ml 175 ml 625 ml Gastric Drainage Total 5 ml 5 ml # Bowel Movements 0 0 Exam Intubated and sedated. Conjugate gaze. Neck supple Lungs clear, she is being actively ventilated. Heart is regular without murmur. Abdomen soft No edema of extremities There is a right hemiparesis. She moves her left arm and leg to stimuli. IVs and Medications Medications Reviewed: Medications were reviewed in detail Lab and Diagnostics Result Diagram: 03/13/16 1300 03/13/16 0824 X-Rays, CTs and MRIs Head CT normal CXR: possible bibasilar infiltrates. 12-lead ECG Atrial fibrillation Assessment & Plan 1. Acute CVA with right hemiparesis, POA. S/P thrombolysis and intubation. 2. PAF, POA. Rate control has been fine without medications 3. Acute hypoxic respiratory failure. POA. The patient was also intubated for airway protection. We will discuss the duration of intubation and purpose with family once we see the serial CT scan. 4. A history of DNR/DNI and a previous pulse which was overturned by telephone to the [facility] today. We will further discuss this level of care is again more information. 5. Hypertension, chronic. POA. We will allow permissive hypertension to exist in the next 24-48 hours. The patient's family all met in the room this morning. They are comfortable proceeding with a morphine drip, the palliative care end-of-life order set and extubation. We will proceed with this.. Pain Evaluation: Adequate Pain Control Resuscitation Status: DNR/DNI:Do Not Resuscitate/Intubate Time spent 25 minutes Misha Acosta MD Mar 14, 2016 14:18
--- NOTE | 2016-03-14 14:39 | NUR ---
Social Work Note: Continued Discharge Planning Data& Assessment: Per pt family has made the decision to transition to comfort care. SW available should any needs arise for pt or pt family. SW to continue to follow if any needs arise. No other discharge needs identified. Plan: Per pt will transition to comfort care and likely pass in the hospital. SW to continue to follow if any needs arise. No other discharge needs identified. NKECHI Ho
--- NOTE | 2016-03-14 15:03 | NUR ---
Extubate Extubated to comfort care at 1000. Family at bedside. Morphine gtt started at 1mcg and Propofol turned off. Pt transferred to [facility] room # [id number] at 1440. Report given to Maribel Peña RN. All personal belongings left with pt.
--- NOTE | 2016-03-14 15:35 | NUR ---
spiritual care: staff referral introductory visit --large family gathered, no specific needs, family feels well supported and informed. Vigiling
--- NOTE | 2016-03-14 18:33 | NUR ---
Transfer Pt transferred from [facility] to [facility] rm 3027, on orders for comfort care Pt came up on Morphine drip with family at bedside. Will continue to monitor.
[2016-03-14 20:09] VITALS: RESP 31
--- NOTE | 2016-03-14 21:28 | NUR ---
Comfort RR of 31. Morphine 2mg IV bolus given with continued Morphine IV 1mcg/hr. Given with good effect. Family at bedside.
--- NOTE | 2016-03-14 21:42 | CONS ---
[address] [address] CONSULTATION REPORT PATIENT: YULIANA CROOKS : 1930 MR#: [id number] ADMIT: 03/13/2016 JOB ID: [id number] DATE OF SERVICE: 03/14/2016 REQUESTING PROVIDER: Jesus Alberto Farrell MD CHIEF COMPLAINT: Stroke. I came to the room today and was informed by the nurse and family that at this point the patient is on comfort care only. Briefly, this is an 85-year-old woman with multiple medical problems who presented from a [facility] with a concern for possible stroke. Last known normal time was 7:30 in the morning. She does have a history of chronic atrial fibrillation and there was initial report the patient was anticoagulated but it turns out that she was not on any anticoagulation. It is unclear why she was not on any anticoagulation. However, it is assumed that she may have had an increased fall risk. Her stroke risk factors include diabetes, paroxysmal atrial fibrillation, diabetes mellitus type 2, hyperlipidemia, hypothyroidism. She was found in the [facility] to have a forced left gaze preference, flaccid paralysis of the right arm as well as paralysis of the right upper and lower extremities and was noted to have difficulty managing secretions. There was extensive discussion with family members and a decision was made to intubate in the emergency department. An EKG was performed, demonstrating rate controlled atrial fibrillation. A noncontrast head CT was performed via protocol and did not reveal any hemorrhage. [facility] was consulted and they were concerned that the CT of the head demonstrated a left middle cerebral artery sign. The concern was for a dense left MCA stroke. There was an extensive discussion between the emergency department physician and the neurologist at [facility] and, given the clinical history and examination, the prognosis was noted to be poor. However, given the power of contracts attorney, request for tissue plasminogen activator and given that the patient had no absolute contraindications, the decision was made, and the [facility] neurologist agreed to offer tissue plasminogen activator. Mild hypertension was noted following intubation thought to be potentially sedation-related and resolved rapidly with propofol. She met criteria. [facility] also noted that she was not a candidate for mechanical retraction, so the standard process of post t-PA IV contrast-enhanced CT angiogram was canceled. There was concern for possible urinary tract infection and the patient received a dose of ceftriaxone. Following tissue plasminogen activator, the decision was made for supportive care. The NIH stroke scale was noted to be a total of 29. Dr. Jesus Alberto Farrell has discussed the case with Dr. Lula Soto of [facility]. I was then notified. Today, I came to the bedside and was told by nursing staff and by family members that the decision was made to pursue comfort care only. The patient was extubated and in light of this, decision was made for no further interventions. Decision was made to proceed with a morphine drip. Palliative care end of life order was set and extubation. Modified Antoni scale of 5. PHYSICAL EXAMINATION: Vital signs: Temperature 37.5, pulse of 93, respiratory rate of 16, blood pressure 151/108, pulse oximetry 100% on a mechanical ventilator. No vital signs were taken after the terminal extubation. Physical examination revealed that the patient was lethargic. Pupils were equal, round, reactive to light. The patient had conjugate gaze. There was a pronounced right hemiparesis. There was spontaneous movement of the left arm and left leg to stimuli, however, the patient was aphasic and was noted to not follow any commands. A 12-lead electrocardiogram was remarkable for atrial fibrillation and chest x-ray demonstrated possible bibasilar infiltrates. LABORATORY STUDIES: WBC of 13.6, hemoglobin 15.7, hematocrit 46.8, platelets of 224. Chemistry: Sodium 135, potassium 4.8, chloride 92, bicarb 29, BUN was 21, creatinine was 0.44 and glucose was 133. Hemoglobin A1c of 7.0. LFTs were within normal limits. Troponin T was 0.019. Coags: PT 9.3, INR 0.87, PTT 23.7. Urinalysis was notable for trace occult blood, small leukocyte esterase, occasional urine epithelial cells and a few bacteria. A repeat CT of the head was performed, demonstrating an early subacute left MCA distribution infarct and no change in her chronic left inferior cerebellar infarct. IMPRESSION: Large left middle cerebral artery distribution infarct. Likely secondary to atrial fibrillation, however, other stroke risk factors as noted above. As noted above, based on discussions between family and Dr. Misha Acosta, decision was made to proceed with comfort care. It appears that the history of DO NOT RESUSCITATE and DO NOT INTUBATE had been overturned by telephone yesterday. However, after discussion between physicians and the family, the decision was made to reinstate comfort care, and she was extubated and placed on a morphine drip with palliative care end of life orders set down. Thank you Dr. Jesus Alberto Farrell, for allowing me to participate in the care of your patient. Please feel free to contact me with any questions or concerns. MIKA
[2016-03-14 23:00] VITALS: PULSE 92; RESP 14
[2016-03-15 01:50] VITALS: PULSE 94; RESP 12
--- NOTE | 2016-03-15 04:15 | NUR ---
Pain controlled with 1mg morphine gtt, respiration rate steady all night around 12/min.
[2016-03-15] MEDS ORDERED: Succinylcholine Chloride 20 mg/mL 5 mL Inj ONE (04:39)
[2016-03-15] MEDS ORDERED: Propofol 10,000 mCg/mL 20 mL Inj ONE (04:39)
--- NOTE | 2016-03-15 06:05 | NUR ---
@04:40 03/15/16, morphine gtt wasted in [facility]. Son Nuno notified via cell and granddaughter arrived shortly after and informed. All paperwork/notifications finished except Home to be determined this AM when family pays last respects. Body to remain in room until this occurs. Addendum: 03/15/16 at 0612 by CHRISTINE JOVEL RN IV access and emerson downey, body cleaned by BOBBI.
--- NOTE | 2016-03-15 10:18 | NUR ---
Social Work: Brief Note Per nursing staff, pt this morning. No further CHANNEL BUSINESS MANAGER needs. Bel Knapp MSW
--- NOTE | 2016-03-15 18:06 | PCM.DC.MEX ---
Discharge Summary Date of Service Mar 15, 2016 Dates of Hospitalization Date of Hospital Admission Mar 13, 2016 at 10:37 Date of Expiration: Mar 15, 2016 Time of Expiration: 04:40 Providers: Admitting Physician: Misha Acosta MD Primary Care Physician: Chantal Terrazas MD Attending Physician: Misha Acosta MD Diagnosis at Time of Acute respiratory failure, secondary to acute cerebrovascular accident, thrombosis in the left MCA distribution Additional Diagnosis Atrial fibrillation, hypertension. Procedures XRay, CTs & MRIs Head CT normal CXR: possible bibasilar infiltrates. ECG 12 Lead Atrial fibrillation Brief History History of Present Illness (per admission note): Patient brought from [facility] for decreased mental status and non verbal status. 911 called. POLST stated DNR. DPOH called and stated to intubate. Brought to ED, with an apparent acute right hemiparesis. Given thrombolytics after tele stroke consult with [place]. Last well 07:30 AM. Usually verbal. Chronically can not walk. Nonverbal in ED, no history available. Initial head CT normal. Chronic AF, not on anticoagulation. Hospital Course 1. Acute CVA with right hemiparesis, POA. S/P thrombolysis and intubation. Status post TPA for acute CVA. CT scan of 1400 indicates an evolving large left MCA infarct. On decision makers were assembled in the room. Inform them that the TPA appeared not to improve the situation and her prognosis was relatively poor as this is a large left hemispheric stroke. Also review level of care issues with them. Ultimately after our discussion they are okay with extubation with BiPAP support if needed. She will be DO NOT RESUSCITATE and DO NOT INTUBATE. The patient's family all met in the room this morning. They are comfortable proceeding with a morphine drip, the palliative care end-of-life order set and extubation. 2. PAF, POA. Rate control has been fine without medications. Possible cardioembolic CVA etiology. 3. Acute hypoxic respiratory failure. POA. The patient was initially intubated for airway protection. Extubated to BiPAP with comfort measures.. 4. Hypertension, chronic. POA. We will allow permissive hypertension to exist in the next 24-48 hours. Exam Test 03/13/16 08:24 03/13/16 09:04 03/13/16 13:00 White Blood Count 13.6th/mm3 (3.8-10.1) Red Blood Count 4.88mil/mm3 (3.90-5.20) Hemoglobin 15.7g/dL (12.0-15.6) Hematocrit 46.8% (35.0-46.0) Mean Corpuscular Volume 95.9fL (81-100) Mean Corpuscular Hemoglobin 32.2pg (27.0-35.0) Mean Corpuscular Hemoglobin Concent 33.5% (32.0-37.0) Red Cell Distribution Width 15.5% (12.3-15.4) Neutrophils (%) (Auto) 76.6% (40-74) Lymphocytes (%) (Auto) 10.8% (14-46) Monocytes (%) (Auto) 8.3% (4-12) Eosinophils (%) (Auto) 0.7% (0-5) Basophils (%) (Auto) 0.4% (0-3) Sodium Level 135mEq/L (134-144) Potassium Level 4.8mEq/L (3.5-5.2) Chloride Level 92mEq/L (97-108) Carbon Dioxide Level 29mmol/L (18-29) Blood Urea Nitrogen 21mg/dL (8-27) Creatinine 0.44mg/dL (0.57-1.00) Estimat Glomerular Filtration Rate 194mL/min (>59) Glucose Level 133mg/dL (60-99) Hemoglobin A1c 7.0% (4.8-5.6) Calcium Level 9.4mg/dL (8.5-10.1) Magnesium Level 1.9mg/dL (1.6-2.6) Total Bilirubin 0.6mg/dL (0.0-1.2) Aspartate Amino Transf (AST/SGOT) 32U/L (0-50) Alanine Aminotransferase (ALT/SGPT) 32U/L (0-32) Alkaline Phosphatase 97U/L (25-165) Troponin T 0.019ug/L (0.0-0.011) Total Protein 6.7g/dL (6.4-8.4) Albumin 3.5g/dL (3.4-5.0) Prealbumin 27mg/dL (20-40) Urine Color Yellow (YELLOW) Urine Appearance Hazy (CLEAR,HAZY) Urine pH 8.0 (5.0-8.0) Urine Specific [place] 1.020 (1.003-1.035) Urine Protein 30mg/dL (NEG,TRACE) Urine Glucose (UA) Negativemg/dL (NEGATIVE) Urine Ketones Negativemg/dL (NEGATIVE) Urine Occult Blood Trace (NEGATIVE) Urine Nitrite Negative (NEGATIVE) Urine Bilirubin Negative (NEGATIVE) Urine Urobilinogen Normalmg/dL (NORMAL) Urine Leukocyte Esterase Small (NEGATIVE) Urine RBC 11-50/hpf (0-2) Urine WBC 11-50/hpf (0-5) Urine Epithelial Cells Occasional/hpf (NONE-MOD) Urine Crystals None seen (NONE SEEN) Urine Bacteria Few/hpf (NONE-FEW) Urine Hyaline Casts None/lpf (NONE) Urine Granular Casts None seen (NONE SEEN) Urine Waxy Casts None seen (NONE SEEN) Urine Red Blood Cell Casts None seen (NONE SEEN) Urine White Blood Cell Casts None seen (NONE SEEN) Urine Mucus None seen (None Seen) Urine Trichomonas None seen (NONE SEEN) Urine Yeast Moderate (NONE SEEN) Urinalysis Comment None Urine Culture Reflexed Indicated Platelet Count 199bil/L (150-400) Prothrombin Time 9.7sec (8.1-12.5) Prothromb Time International Ratio 0.91ratio Activated Partial Thromboplast Time 24.6sec (22.8-33.0) Fibrinogen 312mg/dL (157-380) Time spent 20 minutes copies to: Chantal Terrazas MD, Jeffrey W MD Mar 15, 2016 18:06
== END 2016-03-15 04:40 | disposition expired | DRG 61 ==
LOC: SED 08:20 → CCU 10:37 → PCC 03-14 12:02 → MPC 03-14 14:45
PROVIDERS: ADMIT Hospitalist; ATTEND Hospitalist
PROC: 3E03317 Introduction of Other Thrombolytic into Peripheral Vein, Percutaneous Approach (ICD-10-PCS; principal; 2016-03-13)
PROC: 0BH17EZ Insertion of Endotracheal Airway into Trachea, Via Natural or Artificial Opening (ICD-10-PCS; 2016-03-13)
PROC: 5A1945Z Respiratory Ventilation, 24-96 Consecutive Hours (ICD-10-PCS; 2016-03-13)
DX: I63.9 Cerebral infarction, unspecified (principal); R40.2112 Coma scale, eyes open, never, at arrival to emergency department; R40.2322 Coma scale, best motor response, extension, at arrival to emergency department; R40.2212 Coma scale, best verbal response, none, at arrival to emergency department; N39.0 Urinary tract infection, site not specified; G81.91 Hemiplegia, unspecified affecting right dominant side; Z66 Do not resuscitate; F03.90 Unspecified dementia, unspecified severity, without behavioral disturbance, psychotic disturbance, mood disturbance, and anxiety; I48.2 Chronic atrial fibrillation; I10 Essential (primary) hypertension; E78.5 Hyperlipidemia, unspecified; E03.9 Hypothyroidism, unspecified; E11.9 Type 2 diabetes mellitus without complications; M17.12 Unilateral primary osteoarthritis, left knee; I25.10 Atherosclerotic heart disease of native coronary artery without angina pectoris; M10.9 Gout, unspecified; Z87.891 Personal history of nicotine dependence; I25.2 Old myocardial infarction; M48.06 Spinal stenosis, lumbar region; Z51.5 Encounter for palliative care; Z88.0 Allergy status to penicillin; Z79.4 Long term (current) use of insulin